=== PATIENT | male | born 1975 | race Caucasian/White ===

== ENCOUNTER 2019-10-10 05:56 | Day surgery (SDC) | payer BC ==
[~2019-10-10] VITALS: Ht 172.7 cm; Wt 79.4 kg
[~2019-10-10 05:56] MED LIST: ATIVAN1 MG PO; PROZAC40 MG PO
[2019-10-10 06:43] VITALS: BP 131/86; Ht 172.7 cm; Wt 79.4 kg
--- NOTE | 2019-10-10 07:35 | NUR ---
0725 LEFT ANKLE BLOCK PERFORMED BY DR CRUZ AT BEDSIDE.
--- NOTE | 2019-10-10 07:38 | NUR ---
0730 PT RELAXED AND DROWSY AFTER MEDICATIONS. PT AROUSES EASILY TO VERBAL STIMULI. STATES HE IS NOT EXPERIENCING ANY PAIN AT THE MOMENT. ON BNC 2L/MIN. RESPIRATIONS UNLABORED AND EVEN.
--- NOTE | 2019-10-10 13:55 | OP ---
PATIENT NAME: NIKITA WAYNE MEDICAL RECORD: [id number] :73 LOCATION:D.OPS ADMISSION DATE: SURGEON: JUAN PEACE DO DATE OF OPERATION: 10/10/2019 PROCEDURE PERFORMED: Left ankle open reduction internal fixation. PREOPERATIVE DIAGNOSIS: Left displaced ankle fracture. POSTOPERATIVE DIAGNOSIS: Left displaced ankle fracture. INDICATIONS: Mr. Peace is a 44-year-old male who slipped on wet grass and fell down the hill approximately 4-5 days ago and he got x-rays, which showed a displaced lateral malleolus fracture with medial clear space widening. He also had 3 metatarsal fractures, 2nd, 3rd and 4th at the base. I informed him of the risks of the surgery including infection, bleeding, damage to nerves and vessels in the area, continued pain, need for hardware removal, blood clots, and even and he signed the consent. SURGEON: Juan Peace DO DESCRIPTION OF THE PROCEDURE: The patient received a block by anesthesia in the preoperative area, he was taken to the operative suite, laid in supine position, given general anesthetic and LMA was placed. He was given a gram of Ancef preoperatively. The left lower extremity was then prepped and draped in sterile fashion. Timeout was performed. Everyone was in agreement with the correct side, site, patient and procedure. I then began by making an incision over the lateral ankle and then careful dissection down to the fracture. Fracture site was then reduced with a [id number]. A plate was then put on. Once it was in adequate position, I put 1 screw in the shaft and then 4 locking screws distally and then removed the other screw in the shaft as it had moved the plate. I then put 3 more screws into the shaft including a locking screw most proximally and then put a ZipTight across the ankle joint as he had some medial clear space widening and cinched it down very nicely. Once the ZipTight was in, we then got AP and lateral and everything was in good position. Fracture was well reduced. The tourniquet was then let down. The area was inflated at the beginning of the surgery after the left lower extremity was exsanguinated and it was up for 38 minutes. Julio Rose, certified surgical elastic knitter the closed after irrigating the wound with 2-0 Vicryl in interrupted fashion, A ZipLine placed on the incision, we did have a small jerman incision on the medial side where the ZipTight was taken out of the skin. He closed that with 4-0 Monocryl in horizontal mattress fashion. Then, dressing with Adaptic, 4 x 4s, ABD and did a 2 x 2 dressing and put a 4 x 30 splint posteriorly on the ankle, secured with Andre wraps. He was then awakened and taken to recovery in stable condition. ESTIMATED BLOOD LOSS: Minimal. COMPLICATION: None. TRANSINT:[id number] Voice Confirmation ID: [id number] DOCUMENT ID: [id number] OPERATIVE REPORT [id number] NIKITA WAYNE MICHAEL D, DO at 1355 CC: [id number] DICTATION DATE: 10/10/19 0937 LABORER SAWMILL: 10/10/19 1222 [facility] [place] 10/10/19 [facility] [address] [place] [address]
== END 2019-10-10 11:00 | disposition home or self-care (01) ==
LOC: D.OPS 05:56 → D.PAN 08:15 → D.OPS 11:00 → D.PAN 16:00
PROVIDERS: ATTEND Orthopaedic Surgery
DX: S82.892A Other fracture of left lower leg, initial encounter for closed fracture (principal); X58.XXXA Exposure to other specified factors, initial encounter